=== PATIENT | male | born 1995 | race Caucasian/White ===

== ENCOUNTER 2021-10-25 21:39 | Emergency (ER) | payer MEDICAID ==
[~2021-10-25] VITALS: Ht 180.3 cm; Wt 93.0 kg
[2021-10-25 21:49] VITALS: BP 130/80
[2021-10-25 23:31] LABS: BASOPHILS % 0.3 % (0.0-2.0); EOSINOPHILS % 5.1 % (0.0-5.0); HEMATOCRIT. 46.6 % (42.0-52.0); HEMOGLOBIN. 16.3 g/dL (14.0-18.0); MEAN CORPUSCULAR VOLUME 88.9 fL (80.0-94.0); MONOCYTES % 9.3 % (2.0-8.0); NEUTROPHILS % 43.3 % (40.0-76.0); PLATELET 189 x1000/uL (130-400); RED BLOOD CELL COUNT 5.25 mill/uL (4.7-6.1); RED CELL DISTRIBUTION WIDTH 13.4 % (11.6-14.6)
[2021-10-25 23:42] LABS: CHLORIDE 104 mEq/L (98-107)
[2021-10-26] MEDS ORDERED: IBUP-2029 MT (01:34)
== END 2021-10-26 01:41 | disposition home or self-care (01) ==
LOC: ER 21:39
DX: R09.1 Pleurisy (principal); R03.0 Elevated blood-pressure reading, without diagnosis of hypertension; E78.00 Pure hypercholesterolemia, unspecified
CPT/HCPCS: 36415; 71045; 80053; 83880; 84484; 85025; 93005; 99285

== ENCOUNTER 2022-11-20 14:43 | Emergency (ER) | payer MEDICAID ==
[~2022-11-20] VITALS: Ht 180.3 cm; Wt 90.0 kg
[~2022-11-20 14:43] MED LIST: IBUP-2029 MT
[2022-11-20 15:51] LABS: HEMATOCRIT. 49.6 % (42.0-52.0); HEMOGLOBIN. 17.2 g/dL (14.0-18.0); MEAN CORPUSCULAR VOLUME 89.3 fL (80.0-94.0); MEAN PLATELET VOLUME 10.4 fl (7.4-10.4); PLATELET 191 x1000/uL (130-400); RED BLOOD CELL COUNT 5.55 mill/uL (4.7-6.1); RED CELL DISTRIBUTION WIDTH 13.8 % (11.6-14.6)
[2022-11-20 15:54] LABS: CHLORIDE 104 mEq/L (98-107)
[2022-11-20 17:44] LABS: CLARITY URINE CLEAR (CLEAR); COLOR URINE YELLOW (YELLOW); KETONES URINE TRACE (NEGATIVE); LEUKOCYTE ESTERASE URINE NEGATIVE (NEGATIVE); NITRITE URINE NEGATIVE (NEGATIVE); OCCULT BLOOD URINE NEGATIVE (NEGATIVE); PH URINE 7.5 (4.5-8.0); PROTEIN URINE 1+ (NEGATIVE)
[2022-11-20] MEDS ORDERED: KETOROLAC 30MG/ML VIAL IV STA (18:42)
[2022-11-20] MEDS ORDERED: FAMOTIDINE 20MG/2ML VIAL IV STA (18:42)
[2022-11-20] MEDS ORDERED: ONDANSETRON HCL 4MG/2ML INJ IV STA (18:42)
[2022-11-20] MEDS ORDERED: SODIUM CHLORIDE 0.9% 1,000 ML IV ONE (18:45)
[2022-11-20 18:48] LABS: PLATELET ESTIMATE NORMAL
[2022-11-20] MEDS ORDERED: ONDA4TAB11 PO (20:20)
[2022-11-20 22:00] VITALS: BP 129/71
== END 2022-11-21 00:59 | disposition home or self-care (01) ==
LOC: ER 14:43
DX: R10.84 Generalized abdominal pain (principal); R11.2 Nausea with vomiting, unspecified; E78.00 Pure hypercholesterolemia, unspecified
CPT/HCPCS: 36415; 71045; 74176; 76705; 80053; 81003; 83690; 85025; 96374; 96375; 99285; J1885; J2405; J3490; J7030; Z7610